=== PATIENT | female | born 1960 | race Caucasian/White ===

== ENCOUNTER → 2022-04-17 | Outpatient (CLI) | payer MEDICARE ==
--- NOTE | 2022-04-17 12:34 | Diagnostic Imaging Report ---
INDICATION: Abnormal CT chest study. The patient reportedly has a mass in the left upper lobe. TECHNIQUE: Serum blood glucose level at the time of injection was 117 mg/dl. The patient was administered 11.8 mCi of F-18 FDG intravenously in the right antecubital location and PET imaging was performed from the top of the skull to the mid thighs. A noncontrast CT was also performed for attenuation correction and anatomic correlation. COMPARISON: No prior imaging is available for comparison. FINDINGS: There is symmetric activity throughout the brain. The soft tissues of the neck are unremarkable. There is a hypermetabolic cavitary mass in the left upper lobe measuring 2.3 cm in size, likely accounting for the CT abnormality. The SUV max is approximately 6.0. No mediastinal or hilar hypermetabolism is seen. No other pulmonary parenchymal areas of hypermetabolism are identified. The abdomen and pelvis demonstrate physiologic activity throughout the GI and tracts. No suspicious areas of hypermetabolism are seen. There is some nonspecific muscular uptake in paraspinous muscles as well as about the left hip. IMPRESSION: Hypermetabolic cavitary left upper lobe lung mass, concerning for lung neoplasm. No other significant abnormality is detected. Dictated by: Dictated on workstation # [id number]
== END ==
LOC: RAD 09:00
PROVIDERS: ATTEND Nurse Practitioner Family
DX: R68.89 Other general symptoms and signs (principal); R93.89 Abnormal findings on diagnostic imaging of other specified body structures; R91.8 Other nonspecific abnormal finding of lung field; F17.200 Nicotine dependence, unspecified, uncomplicated

== ENCOUNTER 2022-04-27 07:35 | Outpatient (CLI) | payer MEDICARE ==
[2022-04-27] VITALS (15 sets, daily range): BP systolic 115–150; BP diastolic 71–95
[~2022-04-27] VITALS: Ht 157.5 cm; Wt 69.0 kg
[2022-04-27 08:15] LABS: HEMATOCRIT 35 % (35-52); MEAN CORPUSCULAR HEMOGLOBIN 20 pg (25-34); MEAN CORPUSCULAR HGB CONC 29 g/dL (32-36); MEAN CORPUSCULAR VOLUME 69 fL (80-99); MEAN PLATELET VOLUME 9.1 fL (9.0-12.2); PLATELET COUNT 480 10^3/uL (130-400); WHITE BLOOD COUNT 8.1 10^3/uL (4.3-11.0)
[2022-04-27 08:34] LABS: PROTHROMBIN TIME PATIENT 13.9 SEC (12.2-14.7)
[2022-04-27] MEDS: NS IV 1000 ML 1,000 ML IV STA (10:07)
[2022-04-27] MEDS: fentaNYL INJ 100 MCG/2 ML AMP IVP ONE (10:11)
[2022-04-27] MEDS: MIDAZOLAM 2 MG/2 ML (VERSED) VIAL IVP ONE (10:11)
[2022-04-27] MEDS: LIDOCAINE 1% INJ 30 ML (XYLOCAINE) VIAL INJ ONE (10:11)
--- NOTE | 2022-04-27 11:37 | Diagnostic Imaging Report ---
INDICATION: Left upper lobe mass. Patient presents for CT-guided biopsy. TECHNIQUE: All CT scans use one or more of the following dose optimizing techniques: automated exposure control, MA and/or KvP adjustment based on patient size and exam type or iterative reconstruction. DETAILS OF THE PROCEDURE: The patient was brought to the CT suite and placed on the table in the supine position. Axial imaging through the chest was performed to evaluate for an appropriate entry site. The procedure was performed utilizing conscious sedation with Radiology nursing and constant patient monitoring. The patient was given a total of 100 mcg of fentanyl intravenously and 2 mg of Versed intravenously. The total procedure time was approximately 22 minutes. The upper left anterior thorax was prepped and draped in the usual sterile fashion. A small amount of 1% lidocaine was utilized for local anesthesia. An 18-gauge coaxial Temno needle was advanced and placed with its tip along the margin of the cavitary lesion in the left upper lobe. Numerous core biopsies were obtained. A BioSentry device was deployed during needle removal. Followup imaging does show some perilesional hemorrhage but no significant pneumothorax. The patient tolerated the procedure well and left the Department in stable condition. IMPRESSION: CT-guided left upper lobe lung mass biopsy utilizing conscious sedation. Pathology results are currently pending. Dictated by: Dictated on workstation # [id number]
[2022-04-27] MEDS ORDERED: GABA-486 PO (11:53)
[2022-04-27] MEDS ORDERED: TRAM100T40 PO (11:53)
[2022-04-27] MEDS ORDERED: POTA10TA PO (11:53)
[2022-04-27] MEDS ORDERED: DICL75TA2 PO (11:53)
[2022-04-27] MEDS ORDERED: PANT40TA52 PO (11:53)
[2022-04-27] MEDS ORDERED: AMIT100T2 PO (11:53)
[2022-04-27] MEDS ORDERED: FURO20TA4 PO (11:53)
[2022-04-27] MEDS ORDERED: ROPI4TAB21 PO (11:53)
[2022-04-27] MEDS ORDERED: ALBU8.5H6 PUFF (11:53)
[2022-04-27] MEDS ORDERED: CYCL10TA25 PO (11:53)
[2022-04-27] MEDS ORDERED: BUPR300T98 PO (11:53)
[2022-04-27] MEDS ORDERED: BUDE10.27 IH (11:53)
[2022-04-27] MEDS ORDERED: INDO20CA4 PO (11:53)
[2022-04-27] MEDS ORDERED: ATOR20TA66 PO (11:53)
[2022-04-27] MEDS ORDERED: ALBU2.5V4 INH (11:53)
--- NOTE | 2022-04-27 12:20 | Pre-Op Note & Conscious Sedat ---
Pre-Operative Progress Note Date of Available H&P: Apr 27, 2022 Date H&P Reviewed: Apr 27, 2022 Time H&P Reviewed: 09:00 Pre-Op Diagnosis: lung mass Conscious Sedation Pre-Proced Time 09:00 ASA Score 2 For ASA 3 and 4: Consider anesthesia and medical clearance. Also, for patients with a history of failed moderate sedation consider anesthesia. Airway Lungs Heart ASA score ASA 1: a normal healthy patient ASA 2: a patient with a mild systemic disease (mid diabetes, controlled hypertension, obesity ASA 3: a patient with a severe systemic disease that limits activity (angina, COPD, prior Myocardial infarction) ASA 4: a patient with an incapacitating disease that is a constant threat to life (CHF, renal failure) ASA 5: a moribund patient not expected to survive 24 hrs. (ruptured aneurysm) ASA 6: a declared brain- patient whose organs are being harvested. For emergent operations, add the letter E after the classification Mallampati Classification Grade 2 Sedation Plan Analgesia, Amnesia, Plan communicated to team members, Discussed options with patient/fam, Discussed risks with patient/fam The patient is an appropriate candidate to undergo the planned procedure, sedation, and anesthesia. The patient immediately re-assessed prior to indication. ANJU ALEGRIA MD Apr 27, 2022 12:20
--- NOTE | 2022-04-27 16:30 | Diagnostic Imaging Report ---
INDICATION: Left lung biopsy. TIME OF EXAM: 12:21 p.m. FINDINGS: Expiratory radiograph of the chest was obtained. The cavitary mass in the left upper lobe is again noted. No pneumothorax is detected, status post left lung biopsy. No effusion is seen. IMPRESSION: No evidence of pneumothorax. Dictated by: Dictated on workstation # [id number]
[2022-04-30] MEDS ORDERED: OXC5T PO (12:34)
== END 2022-04-27 13:45 | disposition home or self-care (01) ==
LOC: SDC 07:35
PROVIDERS: ATTEND Nurse Practitioner Family
DX: R91.8 Other nonspecific abnormal finding of lung field (principal)
CPT/HCPCS: 36415; 71045; 77012; 85027; 85610; 85730; 99156; 99157

== ENCOUNTER 2022-04-28 17:28 | Observation (INO) | payer MEDICARE, MEDICAID ==
[~2022-04-28] VITALS: Ht 158 cm; Wt 73.0 kg
[~2022-04-28 17:28] MED LIST: ALBU2.5V4 INH; ALBU8.5H6 PUFF; AMIT100T2 PO; ATOR20TA66 PO; BUDE10.27 IH; BUPR300T98 PO; CYCL10TA25 PO; DICL75TA2 PO; FURO20TA4 PO; GABA-486 PO; INDO20CA4 PO; PANT40TA52 PO; POTA10TA PO; ROPI4TAB21 PO; TRAM100T40 PO
--- NOTE | 2022-04-28 17:44 | ED Respiratory ---
General Chief Complaint: Respiratory Problems Stated Complaint: L BREAST PAIN - SOA Source: patient Exam Limitations: no limitations History of Present Illness Date Seen by Provider: Apr 28, 2022 Time Seen by Provider: 17:43 Initial Comments To ER by [facility] from home with reports of severe left chest pain worsened by deep breathing. This began this morning and has gotten worse throughout the day. She had an outpatient CT-guided needle biopsy of a left upper lobe lung mass done here yesterday. She provides her own history. Timing/Duration: constant Severity: moderate Prior Episodes/Possible Cause: no prior episodes Associated Symptoms: cough Allergies and Home Medications Allergies Coded Allergies: Penicillins (Verified Allergy, Unknown, 04/27/22) aspirin (Verified Allergy, Unknown, 04/27/22) Patient Home Medication List Home Medication List Reviewed: Yes Albuterol Sulfate (Albuterol Sulfate) 2.5 Mg/3 Ml (0.083 %) Vial.neb, 2.5 MG INH PRN, (Reported) Entered as Reported by: Renetta Reyes on 04/27/22 115 Albuterol Sulfate (Ventolin Hfa) 90 Mcg Hfa.aer.ad, 108 MCG PUFF Q4H PRN for PRN, (Reported) Entered as Reported by: Renetta Reyes on 04/27/22 115 Amitriptyline HCl (Amitriptyline HCl) 100 Mg Tablet, 100 MG PO DAILY, (Reported) Entered as Reported by: Renetta Reyes on 04/27/22 115 Atorvastatin Calcium (Atorvastatin Calcium) 20 Mg Tablet, 20 MG PO DAILY, (Reported) Entered as Reported by: Renetta Reyes on 04/27/22 115 Budesonide/Formoterol Fumarate (Budesonide-Formoterol 80-4.5) 80 Mcg-4.5 Mcg/Actuation Hfa.aer.ad, 10.2 GM IH BID, (Reported) Entered as Reported by: Renetta Reyes on 04/27/22 115 Bupropion HCl (Bupropion Xl) 300 Mg Tab.er.24h, 300 MG PO DAILY, (Reported) Entered as Reported by: Renetta Reyes on 04/27/22 115 Cyclobenzaprine HCl (Cyclobenzaprine HCl) 10 Mg Tablet, 10 MG PO TID PRN for PRN, (Reported) Entered as Reported by: Renetta Reyes on 04/27/22 115 Diclofenac Sodium (Diclofenac Sodium) 75 Mg Tablet.dr, 75 MG PO BID PRN for PRN, (Reported) Entered as Reported by: Renetta Reyes on 04/27/22 115 Furosemide (Furosemide) 20 Mg Tablet, 20 MG PO DAILY, (Reported) Entered as Reported by: Renetta Reyes on 04/27/22 115 Gabapentin (Gabapentin) 100 Mg Capsule, 300 MG PO BID, (Reported) Entered as Reported by: Renetta Reyes on 04/27/22 115 Indomethacin, Submicronized (Indomethacin) 20 Mg Capsule, 20 MG PO TID, (Reported) Entered as Reported by: Renetta Reyes on 04/27/22 115 Pantoprazole Sodium (Pantoprazole Sodium) 40 Mg Tablet.dr, 40 MG PO DAILY, (Reported) Entered as Reported by: Renetta Reyes on 04/27/22 115 Potassium Chloride (K-Tab ER) 10 Meq Tablet.er, 10 MEQ PO DAILY, (Reported) Entered as Reported by: Renetta Reyes on 04/27/22 115 Ropinirole HCl (Ropinirole HCl) 4 Mg Tab.er.24h, 4 MG PO HS, (Reported) Entered as Reported by: Renetta Reyes on 04/27/22 115 Tramadol HCl (Tramadol HCl) 100 Mg Tablet, 100 MG PO BID PRN for PRN, (Reported) Entered as Reported by: Renetta Reyes on 04/27/22 115 Review of Systems Review of Systems Constitutional: see HPI Physical Exam Vital Signs - First Documented Capillary Refill : Height: '" Weight: lbs. oz. kg; BMI Method: General Appearance: WD/WN, no apparent distress, other (Despite receiving 100 mcg of fentanyl in route to the hospital she still is hypoventilating due to pain. Transient oxygen desaturation down to 87%. Heart rate 106. Blood pressure 128/100. ) HEENT: PERRL/EOMI, normal ENT inspection Neck: non-tender, full range of motion Respiratory: no respiratory distress, no accessory muscle use, other (Left lung vickers diminished as compared to the right, crackles left base) Cardiovascular: no murmur, tachycardia Gastrointestinal: normal bowel sounds, non tender, soft Neurologic/Psychiatric: alert, normal mood/affect, oriented x 3 Skin: normal color, warm/dry Progress/Results/Core Measures Suspected Sepsis SIRS Temperature: Pulse: Respiratory Rate: Laboratory Tests 04/28/22 17:36: White Blood Count 12.0H Blood Pressure / Mean: Laboratory Tests 04/28/22 17:36: Creatinine 1.06, INR Comment 1.0, Platelet Count 516H, Total Bilirubin 0.2 Results/Orders Lab Results Laboratory Tests Test 04/28/22 17:36 Range/Units White Blood Count 12.0 H 4.3-11.0 10^3/uL Red Blood Count 4.92 3.80-5.11 10^6/uL Hemoglobin 9.6 L 11.5-16.0 g/dL Hematocrit 35 35-52 % Mean Corpuscular Volume 70 L 80-99 fL Mean Corpuscular Hemoglobin 20 L 25-34 pg Mean Corpuscular Hemoglobin Concent 28 L 32-36 g/dL Red Cell Distribution Width 19.2 H 10.0-14.5 % Platelet Count 516 H 130-400 10^3/uL Mean Platelet Volume 9.7 9.0-12.2 fL Immature Granulocyte % (Auto) 0 % Neutrophils (%) (Auto) 80 H 42-75 % Lymphocytes (%) (Auto) 11 L 12-44 % Monocytes (%) (Auto) 6 0-12 % Eosinophils (%) (Auto) 2 0-10 % Basophils (%) (Auto) 1 0-10 % Neutrophils # (Auto) 9.6 H 1.8-7.8 10^3/uL Lymphocytes # (Auto) 1.3 1.0-4.0 10^3/uL Monocytes # (Auto) 0.7 0.0-1.0 10^3/uL Eosinophils # (Auto) 0.3 0.0-0.3 10^3/uL Basophils # (Auto) 0.1 0.0-0.1 10^3/uL Immature Granulocyte # (Auto) 0.0 0.0-0.1 10^3/uL Prothrombin Time 13.2 12.2-14.7 SEC INR Comment 1.0 0.8-1.4 Sodium Level 137 135-145 MMOL/L Potassium Level 4.2 3.6-5.0 MMOL/L Chloride Level 102 98-107 MMOL/L Carbon Dioxide Level 25 21-32 MMOL/L Anion Gap 10 5-14 MMOL/L Blood Urea Nitrogen 14 7-18 MG/DL Creatinine 1.06 0.60-1.30 MG/DL Estimat Glomerular Filtration Rate 60 BUN/Creatinine Ratio 13 Glucose Level 122 H 70-105 MG/DL Calcium Level 9.1 8.5-10.1 MG/DL Corrected Calcium 9.2 8.5-10.1 MG/DL Total Bilirubin 0.2 0.1-1.0 MG/DL Aspartate Amino Transf (AST/SGOT) 18 5-34 U/L Alanine Aminotransferase (ALT/SGPT) 21 0-55 U/L Alkaline Phosphatase 140 H 40-136 U/L Total Protein 7.3 6.4-8.2 GM/DL Albumin 3.9 3.2-4.5 GM/DL My Orders Orders - MUKUND FRIEND APRN Chest 1 View, Ap/Pa Only (04/28/22 17:41) Cbc With Automated Diff (04/28/22 17:41) Comprehensive Metabolic Panel (04/28/22 17:41) Protime With Inr (04/28/22 17:41) Ed Iv/Invasive Line Start (04/28/22 17:41) Ketorolac Injection (Toradol Injection) (04/28/22 17:45) Hydromorphone Injection (Dilaudid Inject (04/28/22 17:45) Ct Chest Wo (04/28/22 18:01) Ed Admission (Communication) (04/28/22 19:01) Medications Given in ED Current Medications Medications Dose Ordered Sig/Tg Route Start Time Stop Time Status Last Admin Dose Admin Hydromorphone HCl 0.5 mg ONCE ONCE IV 04/28/22 17:45 04/28/22 17:46 DC 04/28/22 17:55 0.5 MG Ketorolac Tromethamine 15 mg ONCE ONCE IVP 04/28/22 17:45 04/28/22 17:46 DC 04/28/22 17:54 15 MG Vital Signs/I&O 04/28/22 04/28/22 17:30 17:30 Temp 36.8 Pulse 107 Resp 8 B/P (MAP) 124/81 (95) Pulse Ox 94 O2 Delivery Nasal Cannula Room Air O2 Flow Rate 2.00 Capillary Refill : Departure Communication (Admissions) 1900-CBC and CMP look okay without evidence of infection. Chest x-ray fails to reveal any pneumothorax however given her severe pain concern for pneumothorax persisted so proceeded with CT scan. This did show a small left-sided pneu mothorax. This is small and not large enough to require chest tube placement. We will apply supplemental oxygen, admit for pain control repeat x-ray in the morning. Spoke with Dr. Ellis, will admit, spoke with Dr. Dorman from surgery and he will consult in the morning. Patient is agreeable with this plan. After our dose of 0.5 mg Dilaudid here with Toradol she feels much better with oxygen saturation of 97%. Heart rate down to 80s, blood pressure stable 123/76. NAME: DEMETRIS [facility] REC#: [id number] PT STATUS: REG ER : 1960 PHYSICIAN: MUKUND FRIEND APRN ADMIT DATE: 04/28/22/ER Signed Date of Exam:04/28/22 CT CHEST WO EXAMINATION: CT chest without contrast. TECHNIQUE: Multiple contiguous axial images were obtained through the chest without the use of intravenous contrast. All CT scans use one or more of the following dose optimizing techniques: automated exposure control, MA and/or KvP adjustment based on patient size and exam type or iterative reconstruction. HISTORY: left chest pain, mass biopsy yesterday COMPARISON: 04/17/2022. FINDINGS: Thyroid: The thyroid is normal. Mediastinum: Heart size is normal without significant pericardial effusion. The aorta is normal in caliber. No suspicious lymphadenopathy. Lungs and airways: There is a small left pneumothorax. There is prominent atelectasis seen within the lingula. Cavitary lesion with surrounding groundglass opacity is seen within the left upper lobe measuring up to 2.0 x 1.5 cm. No significant pleural effusion. The airways are normal. Upper abdomen: The gallbladder is surgically absent. Musculoskeletal: Degenerative changes of the spine without suspicious osseous lesion or compression fracture. IMPRESSION: 1. Small left pneumothorax. 2. Redemonstrated cavitary lesion within the left upper lobe. CRITICAL FINDING. Results communicated to Mukund Friend by Dr. Adiel Aguilar at 06:26 p.m. on 04/28/2022. Dictated by: Dictated on workstation # [id number] Dict: 04/28/221822 Trans: 04/28/22 184 [id number] [id number] Interpreted by: ELVIRA AGUILAR DO Electronically signed by: ELVIRA AGUILAR DO 04/28/22 1843 Impression Primary Impression: Pneumothorax Disposition: ADMITTED INPATIENT Condition: Critical Admissions Decision to Admit Reason: Admit from ER (General) Departure-Patient Inst. Referrals: NO,LOCAL PHYSICIAN (PCP/Family) Primary Care Physician Patient Instructions: Pneumothorax (Collapsed Lung) (DC) MUKUND FRIEND APRN Apr 28, 2022 17:44
[2022-04-28] MEDS ORDERED: HYDROmorphone 2 MG/ML VIAL (DILAUDID) IV ONE (17:45)
[2022-04-28] MEDS ORDERED: KETOROLAC 30 MG/ML VIAL IVP ONE (17:45)
[2022-04-28 17:51] LABS: BASOPHILS # (AUTO) 0.1 10^3/uL (0.0-0.1); BASOPHILS % (AUTO) 1 % (0-10); EOSINOPHILS # (AUTO) 0.3 10^3/uL (0.0-0.3); EOSINOPHILS % (AUTO) 2 % (0-10); HEMATOCRIT 35 % (35-52); HEMOGLOBIN 9.6 g/dL (11.5-16.0); LYMPHOCYTES # (AUTO) 1.3 10^3/uL (1.0-4.0); LYMPHOCYTES % (AUTO) 11 % (12-44); MEAN CORPUSCULAR HEMOGLOBIN 20 pg (25-34); MEAN CORPUSCULAR HGB CONC 28 g/dL (32-36); MEAN CORPUSCULAR VOLUME 70 fL (80-99); MEAN PLATELET VOLUME 9.7 fL (9.0-12.2); MONOCYTES # (AUTO) 0.7 10^3/uL (0.0-1.0); MONOCYTES % (AUTO) 6 % (0-12); NEUTROPHILS # (AUTO) 9.6 10^3/uL (1.8-7.8); NEUTROPHILS % (AUTO) 80 % (42-75); PLATELET COUNT 516 10^3/uL (130-400)
--- NOTE | 2022-04-28 17:52 | Diagnostic Imaging Report ---
EXAMINATION: Chest, one view. HISTORY: Chest pain. COMPARISON: None available. FINDINGS: Heart size and pulmonary vasculature are normal. The lungs are clear without consolidation, pleural effusion, or pneumothorax. Degenerative changes of the thoracic spine. Osseous structures are otherwise intact. IMPRESSION: 1. No acute radiographic abnormality in the chest. Dictated by: Dictated on workstation # [id number]
[2022-04-28 17:59] LABS: PROTHROMBIN TIME PATIENT 13.2 SEC (12.2-14.7)
[2022-04-28 18:00] LABS: ALBUMIN 3.9 GM/DL (3.2-4.5)
[2022-04-28 18:01] LABS: POTASSIUM 4.2 MMOL/L (3.6-5.0)
[2022-04-28 18:02] LABS: CALCIUM 9.1 MG/DL (8.5-10.1)
[2022-04-28 18:03] LABS: TOTAL PROTEIN 7.3 GM/DL (6.4-8.2)
[2022-04-28 18:05] LABS: BILIRUBIN,TOTAL 0.2 MG/DL (0.1-1.0)
[2022-04-28 18:06] LABS: CREATININE SERUM 1.06 MG/DL (0.60-1.30)
--- NOTE | 2022-04-28 18:34 | Diagnostic Imaging Report ---
EXAMINATION: CT chest without contrast. TECHNIQUE: Multiple contiguous axial images were obtained through the chest without the use of intravenous contrast. All CT scans use one or more of the following dose optimizing techniques: automated exposure control, MA and/or KvP adjustment based on patient size and exam type or iterative reconstruction. HISTORY: left chest pain, mass biopsy yesterday COMPARISON: 04/17/2022. FINDINGS: Thyroid: The thyroid is normal. Mediastinum: Heart size is normal without significant pericardial effusion. The aorta is normal in caliber. No suspicious lymphadenopathy. Lungs and airways: There is a small left pneumothorax. There is prominent atelectasis seen within the lingula. Cavitary lesion with surrounding groundglass opacity is seen within the left upper lobe measuring up to 2.0 x 1.5 cm. No significant pleural effusion. The airways are normal. Upper abdomen: The gallbladder is surgically absent. Musculoskeletal: Degenerative changes of the spine without suspicious osseous lesion or compression fracture. IMPRESSION: 1. Small left pneumothorax. 2. Redemonstrated cavitary lesion within the left upper lobe. CRITICAL FINDING. Results communicated to Aj Friend by Dr. Adiel Harris at 06:26 p.m. on 04/28/2022. Dictated by: Dictated on workstation # [id number]
[2022-04-28 19:46] VITALS: BP 119/71
[2022-04-28 20:29] VITALS: BP 124/81
[2022-04-28] MEDS ORDERED: LORazepam 0.5 MG (ATIVAN) TABLET PO PRN (20:30)
[2022-04-28] MEDS ORDERED: CALCIUM CARBONATE 500 MG (TUMS) TAB.CHEW PO PRN (20:30)
[2022-04-28] MEDS ORDERED: diphenhydrAMINE 25 MG TAB (BENADRYL) PO PRN (20:30)
[2022-04-28] MEDS ORDERED: MELATONIN 3 MG TABLET PO PRN (20:30)
[2022-04-28] MEDS ORDERED: LORazepam INJ 2 MG/ML (ATIVAN) VIAL IVP PRN (20:30)
[2022-04-28] MEDS ORDERED: MILK OF MAGNESIA 400 MG/5 ML 30 ML UDC PO PRN (20:30)
[2022-04-28] MEDS ORDERED: ONDANSETRON 4 MG/2 ML (SDV) Z0FRAN IV PRN (20:30)
[2022-04-28] MEDS ORDERED: BISACODYL 10 MG SUPP (DULCOLAX) PR PRN (20:30)
[2022-04-28] MEDS ORDERED: HYDROmorphone 2 MG/ML VIAL (DILAUDID) IV PRN (20:30)
[2022-04-28] MEDS ORDERED: ACETAMINOPHEN 325 MG TABLET PO PRN (20:30)
[2022-04-28] MEDS ORDERED: polyethylene glycoL POWDER 17 GM (MIRALAX) PACK PO PRN (20:30)
[2022-04-28] MEDS ORDERED: ONDANSETRON 4 MG (ZOFRAN) ORAL DISSOLVE TAB PO PRN (20:30)
[2022-04-28] MEDS ORDERED: LACTULOSE SYRUP 10GM/15ML (ENULOSE) 30ML UDC PO PRN (20:30)
[2022-04-28] MEDS ORDERED: diphenhydrAMINE 50 MG/ML INJ (BENADRYL) IVP PRN (20:30)
[2022-04-28] MEDS ORDERED: ANTACID SUSP 30 ML UDC (MYLANTA) PO PRN (20:30)
[2022-04-28] MEDS: SENNOSIDES 8.6 MG (SENOKOT) TAB PO SCH (21:59)
[2022-04-28] MEDS: DOCUSATE SODIUM 100 MG (COLACE) CAP PO SCH (21:59)
[2022-04-28] MEDS: RT-ALBUTEROL SULF 2.5 MG/3 ML PRE-MIX VIAL INH PRN (23:36)
[2022-04-28 23:51] VITALS: BP 130/66
--- NOTE | 2022-04-28 23:54 | Consultation - Surgery ---
History of Present Illness History of Present Illness Patient Consulted On(basilia/time) 04/28/22 23:53 Time Seen by Provider: 23:09 History of Present Illness Surgery asked to consult regarding Pneumothorax. HPI per ED: To ER by [facility] from home with reports of severe left chest pain worsened by deep breathing. This began this morning and has gotten worse throughout the day. She had an outpatient CT-guided needle biopsy of a left upper lobe lung mass done here yesterday. She provides her own history. Timing/Duration: constant Severity: moderate Prior Episodes/Possible Cause: no prior episodes Associated Symptoms: cough When I spoke to the pt tonight she stated her breathing was much better. When I spoke to the ED provider, they relayed pt was tachypnic and hypoxic because of the pain. Pt started this morning and then just continued to get worse. She denied doing anything physical and denied trauma to the left side. States she is much more comfortable tonight compared to earlier; "now I can breathe and pain is maybe 3-4 out of 10, it was 10 out of 10 earlier. And, I have a high pain tolerance". She did not think she had a big cough prior to chest pain either. She stated she couldn't take a big breath or catch her breath because of the pain. Allergies and Home Medications Allergies Coded Allergies: Penicillins (Verified Allergy, Unknown, 04/27/22) aspirin (Verified Allergy, Unknown, 04/27/22) Patient Home Medication List Home Medication List Reviewed: Yes Albuterol Sulfate (Albuterol Sulfate) 2.5 Mg/3 Ml (0.083 %) Vial.neb, 2.5 MG INH PRN, (Reported) Entered as Reported by: Renetta Reyes on 04/27/221152 Last Action: Reviewed Albuterol Sulfate (Ventolin Hfa) 90 Mcg Hfa.aer.ad, 108 MCG PUFF Q4H PRN for PRN, (Reported) Entered as Reported by: Renetta Reyes on 04/27/221152 Last Action: Reviewed Amitriptyline HCl (Amitriptyline HCl) 100 Mg Tablet, 100 MG PO DAILY, (Reported) Entered as Reported by: Renetta Reyes on 04/27/221152 Last Action: Reviewed Atorvastatin Calcium (Atorvastatin Calcium) 20 Mg Tablet, 20 MG PO DAILY, (Reported) Entered as Reported by: Renetta Reyes on 04/27/221152 Last Action: Reviewed Budesonide/Formoterol Fumarate (Budesonide-Formoterol 80-4.5) 80 Mcg-4.5 Mcg/Actuation Hfa.aer.ad, 10.2 GM IH BID, (Reported) Entered as Reported by: Renetta Reyes on 04/27/221152 Last Action: Reviewed Bupropion HCl (Bupropion Xl) 300 Mg Tab.er.24h, 300 MG PO DAILY, (Reported) Entered as Reported by: Renetta Reyes on 04/27/221152 Last Action: Reviewed Cyclobenzaprine HCl (Cyclobenzaprine HCl) 10 Mg Tablet, 10 MG PO TID PRN for PRN, (Reported) Entered as Reported by: Renetta Reyes on 04/27/221152 Last Action: Reviewed Diclofenac Sodium (Diclofenac Sodium) 75 Mg Tablet.dr, 75 MG PO BID PRN for PRN, (Reported) Entered as Reported by: Renetta Reyes on 04/27/221152 Last Action: Reviewed Furosemide (Furosemide) 20 Mg Tablet, 20 MG PO DAILY, (Reported) Entered as Reported by: Renetta Reyes on 04/27/221152 Last Action: Reviewed Gabapentin (Gabapentin) 100 Mg Capsule, 300 MG PO BID, (Reported) Entered as Reported by: Renetta Reyes on 04/27/221152 Last Action: Reviewed Indomethacin, Submicronized (Indomethacin) 20 Mg Capsule, 20 MG PO TID, (Reported) Entered as Reported by: Renetta Reyes on 04/27/221152 Last Action: Reviewed Pantoprazole Sodium (Pantoprazole Sodium) 40 Mg Tablet.dr, 40 MG PO DAILY, (Reported) Entered as Reported by: Renetta Reyes on 04/27/221152 Last Action: Reviewed Potassium Chloride (K-Tab ER) 10 Meq Tablet.er, 10 MEQ PO DAILY, (Reported) Entered as Reported by: Renetta Reyes on 04/27/221152 Last Action: Reviewed Ropinirole HCl (Ropinirole HCl) 4 Mg Tab.er.24h, 4 MG PO HS, (Reported) Entered as Reported by: Renetta Reyes on 04/27/221152 Last Action: Reviewed Tramadol HCl (Tramadol HCl) 100 Mg Tablet, 100 MG PO BID PRN for PRN, (Reported) Entered as Reported by: Renetta Reyes on 04/27/22 1150 Last Action: Reviewed Past Sltkgdj-Mkqgnu-Qipwft Hx Patient Social History Smoking Status: Current Someday Smoker Alcohol Use?: No Have you traveled recently?: No Surgeries History of Surgeries: Yes (Lung bx) Respiratory History of Respiratory Disorde: Yes Respiratory Disorders: COPD Cardiovascular History of Cardiac Disorders: Yes Cardiac Disorders: High Cholesterol, Hypertension Neurological History of Neurological Disord: Yes Neurological Disorders: Headaches /Migraines, Neuropathy Genitourinary History of Genitourinary Disor: No Gastrointestinal History of Gastrointestinal Di: No Musculoskeletal History of Musculoskeletal Dis: Yes Musculoskeletal Disorders: Arthritis Endocrine History of Endocrine Disorders: No HEENT Hearing Impairment: Denies Cancer History of Cancer: No Psychosocial History of Psychiatric Problem: Yes Behavioral Health Disorders: Anxiety, Depression Integumentary History of Skin or Integumenta: No Family Medical History Significant Family History: No Pertinent Family Hx (pt does not remember if family has any medical problems) Review of Systems-General Constitutional: No chills, No fever EENTM: No blurred vision, No mouth pain, No mouth swelling, No epistaxis Respiratory: cough, dyspnea on exertion; No hemoptysis; short of breath Cardiovascular: chest pain; No edema, No palpitations Gastrointestinal: No abdominal pain, No nausea, No vomiting Genitourinary: No dysuria, No frequency, No hematuria Musculoskeletal: No back pain; joint pain, joint swelling, muscle stiffness Skin: No change in color, No change in hair/nails Psychiatric/Neurological: Anxiety, Depressed; Denies Seizure, Denies Tremors Physical Exam-General Problems Physical Exam Vital Signs Vital Signs - First Documented 04/28/22 20:29 FiO2 28 Capillary Refill : General Appearance: mild distress, obese Eyes: Bilateral Eye PERRL, Bilateral Eye EOMI HEENT: pharynx normal; No scleral icterus (R), No scleral icterus (L) Neck: non-tender, supple Respiratory: lungs clear, normal breath sounds, no respiratory distress, no accessory muscle use, other (pt appears to take normal breaths) Cardiovascular: regular rate, rhythm, no murmur Gastrointestinal: non tender, soft, no organomegaly Back: no CVA tenderness, no vertebral tenderness Extremities: no pedal edema, no calf tenderness Neurologic/Psychiatric: alert, normal mood/affect, oriented x 3 Skin: normal color, warm/dry Lymphatic: no adenopathy (neck or groin) Data Review Labs Laboratory Tests 04/28/22 17:36: White Blood Count 12.0H, Red Blood Count 4.92, Hemoglobin 9.6L, Hematocrit 35, Mean Corpuscular Volume 70L, Mean Corpuscular Hemoglobin 20L, Mean Corpuscular Hemoglobin Concent 28L, Red Cell Distribution Width 19.2H, Platelet Count 516H, Mean Platelet Volume 9.7, Immature Granulocyte % (Auto) 0, Neutrophils (%) (Auto) 80H, Lymphocytes (%) (Auto) 11L, Monocytes (%) (Auto) 6, Eosinophils (%) (Auto) 2, Basophils (%) (Auto) 1, Neutrophils # (Auto) 9.6H, Lymphocytes # (Auto) 1.3, Monocytes # (Auto) 0.7, Eosinophils # (Auto) 0.3, Basophils # (Auto) 0.1, Immature Granulocyte # (Auto) 0.0, Prothrombin Time 13.2, INR Comment 1.0, Sodium Level 137, Potassium Level 4.2, Chloride Level 102, Carbon Dioxide Level 25, Anion Gap 10, Blood Urea Nitrogen 14, Creatinine 1.06, Estimat Glomerular Filtration Rate 60, BUN/Creatinine Ratio 13, Glucose Level 122H, Calcium Level 9.1, Corrected Calcium 9.2, Total Bilirubin 0.2, Aspartate Amino Transf (AST/S GOT) 18, Alanine Aminotransferase (ALT/SGPT) 21, Alkaline Phosphatase 140H, Total Protein 7.3, Albumin 3.9 Radiology Date of Exam:04/28/22 CT CHEST WO EXAMINATION: CT chest without contrast. TECHNIQUE: Multiple contiguous axial images were obtained through the chest without the use of intravenous contrast. All CT scans use one or more of the following dose optimizing techniques: automated exposure control, MA and/or KvP adjustment based on patient size and exam type or iterative reconstruction. HISTORY: left chest pain, mass biopsy yesterday COMPARISON: 04/17/2022. FINDINGS: Thyroid: The thyroid is normal. Mediastinum: Heart size is normal without significant pericardial effusion. The aorta is normal in caliber. No suspicious lymphadenopathy. Lungs and airways: There is a small left pneumothorax. There is prominent atelectasis seen within the lingula. Cavitary lesion with surrounding groundglass opacity is seen within the left upper lobe measuring up to 2.0 x 1.5 cm. No significant pleural effusion. The airways are normal. Upper abdomen: The gallbladder is surgically absent. Musculoskeletal: Degenerative changes of the spine without suspicious osseous lesion or compression fracture. IMPRESSION: 1. Small left pneumothorax. 2. Redemonstrated cavitary lesion within the left upper lobe. CRITICAL FINDING. Results communicated to Aj Friend by Dr. Adiel Aguilar at 06:26 p.m. on 04/28/2022. Dictated by: Dictated on workstation # [id number] Dict: 04/28/221822 Trans: 04/28/221842 [id number] Interpreted by: ELVIRA AGUILAR DO Electronically signed by: ELVIRA AGUILAR DO 04/28/221842 Assessment/Plan Assessment/Plan Assessment/Plan Pneumothorax - Iatrogenic Chest pain SOB with hypoxia - on O2 I looked at the CT and CXR myself and spoke with ED provider. The PTX is very hard to see on CXR and I think I only see it because I have seen the CT. Pt's breathing has improved, she is not hypoxic but is on O2 by NC. She does not appear to be in any distress and will check the CXR in the am. The PTX is too small to attempt to remove the air in the pleural cavity; would just monitor breathing and imaging. Pain control as needed. Will have RT see to make sure she won't need O2 at home. MENDOZA GUPTA DO Apr 28, 2022 23:54
[2022-04-29 04:17] VITALS: BP 114/66
[2022-04-29 05:51] LABS: BASOPHILS % (AUTO) 1 % (0-10); EOSINOPHILS # (AUTO) 0.3 10^3/uL (0.0-0.3); EOSINOPHILS % (AUTO) 4 % (0-10); HEMATOCRIT 31 % (35-52); HEMOGLOBIN 8.8 g/dL (11.5-16.0); LYMPHOCYTES # (AUTO) 1.6 10^3/uL (1.0-4.0); LYMPHOCYTES % (AUTO) 22 % (12-44); MEAN CORPUSCULAR HEMOGLOBIN 20 pg (25-34); MEAN CORPUSCULAR HGB CONC 28 g/dL (32-36); MEAN CORPUSCULAR VOLUME 70 fL (80-99); MEAN PLATELET VOLUME 9.3 fL (9.0-12.2); MONOCYTES # (AUTO) 0.6 10^3/uL (0.0-1.0); MONOCYTES % (AUTO) 8 % (0-12); NEUTROPHILS # (AUTO) 4.8 10^3/uL (1.8-7.8); NEUTROPHILS % (AUTO) 66 % (42-75); PLATELET COUNT 428 10^3/uL (130-400); WHITE BLOOD COUNT 7.3 10^3/uL (4.3-11.0)
[2022-04-29 06:15] LABS: ALBUMIN 3.5 GM/DL (3.2-4.5); BILIRUBIN,TOTAL 0.3 MG/DL (0.1-1.0); CALCIUM 8.6 MG/DL (8.5-10.1); CREATININE SERUM 0.83 MG/DL (0.60-1.30); POTASSIUM 3.6 MMOL/L (3.6-5.0); TOTAL PROTEIN 6.5 GM/DL (6.4-8.2)
--- NOTE | 2022-04-29 06:48 | Short Stay Summary-Hospitalist ---
History of Present Illness HPI/Chief Complaint Chief complaint: Pneumothorax with chest pain due to left-sided very small pneumothorax post procedure HPI: This is a 61-year-old female smoker who is status post CT-guided pulmonary nodule biopsy who presented to the ER last night with left-sided chest pain found to have no evidence of any abnormality on chest x-ray but CT scan obtained showing a very small pneumothorax. The pain was so severe she required IV pain medication and general surgery consultation. She reports that she is doing a lot better but still a lot of pain and oxygen supplementation has been maintained and follow-up chest x-ray shows only a trace amount of pneumothorax. Source: patient Exam Limitations: no limitations Date Seen 04/29/22 Time Seen by a Provider: 11:00 Attending Physician [facility] PCP Admitting Physician: Nilda Ellis DO Attending Physician: Nilda Ellis DO Referring Physician Date of Admission Apr 28, 2022 at 19:02 Home Medications & Allergies Home Medications Reviewed patient Home Medication Reconciliation performed by pharmacy medication reconciliations licensed psychiatric technician and/or nursing. Patients Allergies have been reviewed. Allergies Allergies Coded Allergies Penicillins (Verified Allergy, Unknown, 04/27/22) aspirin (Verified Allergy, Unknown, 04/27/22) Past Reuvgpw-Vpvijj-Ysdrxm Hx Patient Social History Marrital Status: single Employed/Student: unemployed Tobacco Use?: Yes Tobacco type used: Cigarettes Smoking Status: Current Everyday Smoker Smokeless Tobacco Frequency: Never a User Use of E-Cig and/or Vaping dev: No Substance use?: No Alcohol Use?: No Pt feels they are or have been: No Immunizations Up To Date First/Initial COVID19 Vaccinat: DENIES Tetanus Booster (TDap): Unknown Current Status status: No status: No Advance Directives: No Communicates: Verbally Primary Language: Telugu Preferred Spoken Language: Telugu Is interpretation needed?: No Past Medical History COPD High Cholesterol, Hypertension Headaches /Migraines, Neuropathy Arthritis Hearing Impairment: Denies Anxiety, Depression Family Medical History No Pertinent Family Hx (pt does not remember if family has any medical problems) Review of Systems Constitutional: see HPI Respiratory: short of breath Cardiovascular: chest pain Physical Exam Physical Exam Vital Signs Vital Signs - First Documented 04/28/22 20:29 FiO2 28 Capillary Refill : Height, Weight, BMI Height: '" Weight: lbs. oz. kg; 29.24 BMI Method: General Appearance: No Apparent Distress, WD/WN, Chronically ill Eyes: Bilateral Eye PERRL, Bilateral Eye EOMI Respiratory: No Accessory Muscle Use, No Respiratory Distress, Decreased Breath Sounds Cardiovascular: Regular Rate, Rhythm Neurologic/Psychiatric: Alert, Oriented x3, No Motor/Sensory Deficits, Normal Mood/Affect Results Results/Procedures Labs Laboratory Tests 04/28/22 17:36 04/29/22 05:45 Patient resulted labs reviewed. Short Stay Diagnosis Discharge Diagnosis-Short Stay Admission Diagnosis Assessment: Left-sided pneumothorax status post CT-guided lung nodule biopsy Hypoxia Chest pain Smoker Hypertension Hyperlipidemia COPD Plan: Pain control Oxygen Dr. Dorman appreciated Final Discharge Diagnosis Assessment: Left-sided pneumothorax status post CT-guided lung nodule biopsy Hypoxia Chest pain Smoker Hypertension Hyperlipidemia COPD Plan: Pain control Oxygen Dr. Dorman appreciated Conclusion Plan Assessment: Left-sided pneumothorax status post CT-guided lung nodule biopsy Hypoxia Chest pain Smoker Hypertension Hyperlipidemia COPD Plan: Pain control Oxygen Dr. Dorman appreciated Diagnosis/Problems Diagnosis/Problems (1) Pneumothorax Status: Acute NILDA ELLIS DO Apr 29, 2022 06:48
[2022-04-29 07:23] VITALS: BP 154/73
[2022-04-29] MEDS: DOCUSATE SODIUM 100 MG (COLACE) CAP PO SCH ×2 (08:00→21:25)
[2022-04-29] MEDS: SENNOSIDES 8.6 MG (SENOKOT) TAB PO SCH ×2 (08:00→21:25)
--- NOTE | 2022-04-29 08:51 | Progress Note - Surgery ---
JOHNIE ZULUAGA 04/29/22 0851: Subjective Date Seen by a Provider: Apr 29, 2022 Time Seen by a Provider: 07:45 Subjective/Events-last exam Ms. Rivera is a 61 year old female being followed for a small pneumothorax s/p CT-guided needle biopsy of a left upper lobe lung mass on MAY 01. Patient rep orts increased pain this morning causing her to only be able to take shallow breaths. The pain is on her left-chest wall and wraps around to her back. The pain is worsened with deep breathing. She has had a continuous cough that is painful. Prior to our encounter her last bit of pain medicine was last night, she received more pain medicine right after our encounter. She rates her pain as a 7/10 this morning but it was a 10/10 at its peak. She is maintained on 2L oxygen via NC. She does not feel short of breath, only has trouble taking deep breaths. Review of Systems General: No Chills, No Fatigue Pulmonary: No Dyspnea; Cough, Pleuritic Chest Pain Cardiovascular: No: Chest Pain, Palpitations Gastrointestinal: No: Nausea, Vomiting, Abdominal Pain Neurological: No: Weakness, Confusion Objective Exam Vital Signs Date Time Temp Pulse Resp B/P (MAP) Pulse Ox O2 Delivery O2 Flow Rate FiO2 04/29/22 07:23 36.4 95 18 154/73 (100) 92 Nasal Cannula 2.00 2.00 04/29/22 07:00 91 04/29/22 04:17 36.3 92 16 114/66 (82) 95 Nasal Cannula 2.00 04/29/22 01:00 90 04/28/22 23:51 36.4 99 16 130/66 (87) 94 Nasal Cannula 2.00 04/28/22 23:36 94 Nasal Cannula 2.00 04/28/22 20:29 36.8 107 94 28 04/28/22 19:46 36.1 100 20 119/71 (87) 97 Nasal Cannula 2.00 04/28/22 19:36 92 12 118/82 95 Nasal Cannula 2.00 04/28/22 19:30 Nasal Cannula 2.00 04/28/22 17:30 Room Air 04/28/22 17:30 36.8 107 8 124/81 (95) 94 Nasal Cannula 2.00 I & O 04/29/22 07:00 Intake Total 872 ml Balance 872 ml Capillary Refill : General Appearance: No Apparent Distress, WD/WN HEENT: PERRL/EOMI; No Scleral Icterus (L), No Scleral Icterus (R) Neck: Normal Inspection, Non Tender Respiratory: Chest Non Tender, No Accessory Muscle Use, No Respiratory Distress (No distress noted, patient was sitting up and leaning forward), Decreased Breath Sounds (Distant lung sounds, patient unable to take deep breaths) Cardiovascular: Regular Rate, Rhythm, No Edema, Normal Peripheral Pulses Peripheral Pulses: 2+ Radial Pulses (R), 2+ Radial Pulses (L) Gastrointestinal: non tender, soft Extremity: Non Tender, No Calf Tenderness Neurologic/Psychiatric: Alert, Oriented x3, No Motor/Sensory Deficits, Normal Mood/Affect Skin: Normal Color, Warm/Dry Results Lab Laboratory Tests 04/28/22 17:36: White Blood Count 12.0H, Red Blood Count 4.92, Hemoglobin 9.6L, Hematocrit 35, Mean Corpuscular Volume 70L, Mean Corpuscular Hemoglobin 20L, Mean Corpuscular Hemoglobin Concent 28L, Red Cell Distribution Width 19.2H, Platelet Count 516H, Mean Platelet Volume 9.7, Immature Granulocyte % (Auto) 0, Neutrophils (%) (Auto) 80H, Lymphocytes (%) (Auto) 11L, Monocytes (%) (Auto) 6, Eosinophils (%) (Auto) 2, Basophils (%) (Auto) 1, Neutrophils # (Auto) 9.6H, Lymphocytes # (Auto) 1.3, Monocytes # (Auto) 0.7, Eosinophils # (Auto) 0.3, Basophils # (Auto) 0.1, Immature Granulocyte # (Auto) 0.0, Prothrombin Time 13.2, INR Comment 1.0, Sodium Level 137, Potassium Level 4.2, Chloride Level 102, Carbon Dioxide Level 25, Anion Gap 10, Blood Urea Nitrogen 14, Creatinine 1.06, Estimat Glomerular Filtration Rate 60, BUN/Creatinine Ratio 13, Glucose Level 122H, Calcium Level 9.1, Corrected Calcium 9.2, Total Bilirubin 0.2, Aspartate Amino Transf (AST/SGOT) 18, Alanine Aminotransferase (ALT/SGPT) 21, Alkaline Phosphatase 140H , Total Protein 7.3, Albumin 3.9 04/29/22 05:45: White Blood Count 7.3, Red Blood Count 4.42, Hemoglobin 8.8L, Hematocrit 31L, Mean Corpuscular Volume 70L, Mean Corpuscular Hemoglobin 20L, Mean Corpuscular Hemoglobin Concent 28L, Red Cell Distribution Width 18.6H, Platelet Count 428H, Mean Platelet Volume 9.3, Immature Granulocyte % (Auto) 0, Neutrophils (%) (Auto) 66, Lymphocytes (%) (Auto) 22, Monocytes (%) (Auto) 8, Eosinophils (%) (Auto) 4, Basophils (%) (Auto) 1, Neutrophils # (Auto) 4.8, Lymphocytes # (Auto) 1.6, Monocytes # (Auto) 0.6, Eosinophils # (Auto) 0.3, Basophils # (Auto) 0.0, Immature Granulocyte # (Auto) 0.0, Sodium Level 136, Potassium Level 3.6, Chloride Level 103, Carbon Dioxide Level 26, Anion Gap 7, Blood Urea Nitrogen 13, Creatinine 0.83, Estimat Glomerular Filtration Rate 80, BUN/Creatinine Ratio 16, Glucose Level 91, Calcium Level 8.6, Corrected Calcium 9.0, Total Bilirubin 0.3, Aspartate Amino Transf (AST/SGOT) 17, Alanine Aminotransferase (ALT/SGPT) 21, Alkaline Phosphatase 123, Total Protein 6.5, Albumin 3.5 Assessment/Plan Assessment/Plan Assessment/Plan Pneumothorax - Iatrogenic Chest pain SOB with hypoxia - on O2 Leukocytosis Trending down to 7.3 this morning CXR repeated this AM, no report yet as of this note Symptomatic management at this time, no indication for chest tube Pain control as needed Supplemental oxygen via NC as needed JULIAN DORMAN DO 04/29/22 1203: Subjective Time Seen by a Provider: 09:28 Subjective/Events-last exam Pt seen and examined, states it still hurts to take deep breaths and she it still on O2 by NC. Pain meds help with pain and coughing makes it worse. Review of Systems General: No Chills, No Fatigue Pulmonary: No Dyspnea; Cough, Pleuritic Chest Pain Cardiovascular: No: Chest Pain, Palpitations Gastrointestinal: No: Nausea, Vomiting, Abdominal Pain Objective Exam General Appearance: No Apparent Distress, WD/WN HEENT: PERRL/EOMI; No Scleral Icterus (L), No Scleral Icterus (R) Respiratory: No Accessory Muscle Use, No Respiratory Distress (No distress noted, patient was sitting up and leaning forward), Decreased Breath Sounds (Distant lung sounds, patient unable to take deep breaths), Other (Left side of chest is tender) Cardiovascular: Regular Rate, Rhythm, No Murmur Gastrointestinal: non tender, soft Extremity: Non Tender, No Calf Tenderness Neurologic/Psychiatric: Alert, Oriented x3 Assessment/Plan Assessment/Plan Assessment/Plan Pneumothorax - Iatrogenic Chest pain SOB with hypoxia - on O2 Leukocytosis Trending down to 7.3 this morning CXR repeated this AM, I reviewed myself and then followed up looking at Radiology report; now can see small PTX in costophrenic angle (it might have been there yesterday). PTX not big enough for chest tube. RT for MAT protocol, breathing treatments and to assess O2 needs (to try and get her off NC so she can go home). Pain control as needed. Supplemental oxygen via NC as needed Supervisory-Addendum Brief Verification & Attestation Participated in pt care: history, MDM, physical Personally performed: exam, history, MDM, supervision of care Care discussed with: Medical Student Procedures: n/a Verification and Attestation of Medical Student E/M Service A medical student performed and documented this service. I then reviewed and verified all information documented by the medical student and made modifications to such information, when appropriate. I personally performed a physical exam, medical decision making and then discussed any differences between the notes and made revisions as necessary to create one note. Julian Dorman , 04/29/22 , 12:03 JHONIE ZULUAGA Apr 29, 2022 08:51 JULIAN DORMAN DO Apr 29, 2022 12:03
--- NOTE | 2022-04-29 09:10 | Diagnostic Imaging Report ---
CHEST 1 VIEW, AP/PA ONLY Indication: Pneumothorax Comparison: 04/28/2022 Findings: Left upper lobe cavitary nodule is stable. Trace left basilar pneumothorax. No mediastinal shift. No pleural effusion. Normal heart size. Impression: 1. The trace left-sided pneumothorax is barely appreciable by radiography. 2. Stable cavitary nodule in the left upper lobe. Dictated by: Dictated on workstation # [id number]
[2022-04-29 11:02] VITALS: BP 147/66
[2022-04-29 16:15] VITALS: BP 148/97
[2022-04-29 19:25] VITALS: BP 166/102
[2022-04-29] MEDS ORDERED: ENOXAPARIN 40 MG/0.4 ML (LOVENOX) SYR SC SCH (21:00)
[2022-04-29] MEDS: RT-ALBUTEROL SULF 2.5 MG/3 ML PRE-MIX VIAL INH PRN (21:35)
[2022-04-29 23:25] VITALS: BP 151/90
[2022-04-30 03:33] VITALS: BP 159/80
[2022-04-30 07:19] VITALS: BP 148/84
[2022-04-30 07:23] LABS: BASOPHILS # (AUTO) 0.1 10^3/uL (0.0-0.1); BASOPHILS % (AUTO) 1 % (0-10); EOSINOPHILS # (AUTO) 0.3 10^3/uL (0.0-0.3); EOSINOPHILS % (AUTO) 4 % (0-10); HEMATOCRIT 36 % (35-52); HEMOGLOBIN 10.2 g/dL (11.5-16.0); LYMPHOCYTES # (AUTO) 1.4 10^3/uL (1.0-4.0); LYMPHOCYTES % (AUTO) 15 % (12-44); MEAN CORPUSCULAR HEMOGLOBIN 20 pg (25-34); MEAN CORPUSCULAR HGB CONC 28 g/dL (32-36); MEAN CORPUSCULAR VOLUME 70 fL (80-99); MEAN PLATELET VOLUME 9.5 fL (9.0-12.2); MONOCYTES # (AUTO) 0.5 10^3/uL (0.0-1.0); MONOCYTES % (AUTO) 6 % (0-12); NEUTROPHILS # (AUTO) 6.8 10^3/uL (1.8-7.8); NEUTROPHILS % (AUTO) 74 % (42-75); PLATELET COUNT 505 10^3/uL (130-400); WHITE BLOOD COUNT 9.2 10^3/uL (4.3-11.0)
[2022-04-30 07:36] LABS: ALBUMIN 4.1 GM/DL (3.2-4.5)
[2022-04-30 07:37] LABS: CALCIUM 9.6 MG/DL (8.5-10.1)
[2022-04-30 07:39] LABS: TOTAL PROTEIN 7.6 GM/DL (6.4-8.2)
[2022-04-30 07:40] LABS: BILIRUBIN,TOTAL 0.3 MG/DL (0.1-1.0)
[2022-04-30 07:42] LABS: CREATININE SERUM 0.8 MG/DL (0.60-1.30)
--- NOTE | 2022-04-30 07:55 | Progress Note - Hospitalist ---
Subjective HPI/CC On Admission Date Seen by Provider: Apr 30, 2022 Time Seen by Provider: 11:00 Chief complaint: Pneumothorax with chest pain due to left-sided very small pneumothorax post procedure HPI: This is a 61-year-old female smoker who is status post CT-guided pulmonary nodule biopsy who presented to the ER last night with left-sided chest pain found to have no evidence of any abnormality on chest x-ray but CT scan obtained showing a very small pneumothorax. The pain was so severe she required IV pain medication and general surgery consultation. She reports that she is doing a lot better but still a lot of pain and oxygen supplementation has been maintained and follow-up chest x-ray shows only a trace amount of pneumothorax. Subjective/Events-last exam Patient doing much better Wants to go home Home O2 evaluation will be completed Weaning off oxygen Reviewed chest x-ray Review of Systems General: Fatigue, Malaise Pulmonary: Dyspnea Objective Exam Vital Signs Vital Signs Date Time Temp Pulse Resp B/P (MAP) Pulse Ox O2 Delivery O2 Flow Rate FiO2 04/30/22 11:03 36.5 105 20 154/92 (112) 95 Nasal Cannula 1.00 1.00 04/28/22 20:29 28 Capillary Refill : General Appearance: No Apparent Distress, WD/WN, Chronically ill Respiratory: Lungs Clear, Normal Breath Sounds Cardiovascular: Regular Rate, Rhythm Neurologic/Psychiatric: Alert, Oriented x3, No Motor/Sensory Deficits, Normal Mood/Affect Results/Procedures Lab Laboratory Tests 04/30/22 07:07 Patient resulted labs reviewed. Assessment/Plan Assessment and Plan Assess & Plan/Chief Complaint Assessment: Left-sided pneumothorax status post CT-guided lung nodule biopsy Hypoxia Chest pain Smoker Hypertension Hyperlipidemia COPD Plan: Pain control Oxygen Dr. Dorman appreciated Diagnosis/Problems Diagnosis/Problems (1) Pneumothorax Status: Acute JEREMYABIOLA CROSS Apr 30, 2022 07:55
[2022-04-30] MEDS ORDERED: RT-ALBUTEROL SULF 2.5 MG/3 ML PRE-MIX VIAL INH SCH (08:00)
[2022-04-30] MEDS: SENNOSIDES 8.6 MG (SENOKOT) TAB PO SCH ×2 (08:43→08:46)
[2022-04-30] MEDS: DOCUSATE SODIUM 100 MG (COLACE) CAP PO SCH ×2 (08:43→08:45)
--- NOTE | 2022-04-30 09:00 | Diagnostic Imaging Report ---
EXAMINATION: Chest 2 view HISTORY: Pneumothorax COMPARISON: 04/29/2022 FINDINGS: Heart size and pulmonary vasculature are normal. There continues to be a small left pleural effusion with a trace amount of air seen along the superior margin. There are mild interstitial opacities within the left lung base which are unchanged. Degenerative changes of the thoracic spine. Osseous structures are otherwise intact. IMPRESSION: 1. Stable appearing left hydropneumothorax compared to 04/29/2022. Dictated by: Dictated on workstation # [id number]
[2022-04-30 11:03] VITALS: BP 154/92
--- NOTE | 2022-04-30 12:03 | Progress Note - Surgery ---
JOHNIE ZULUAGA 04/30/22 1203: Subjective Date Seen by a Provider: Apr 30, 2022 Time Seen by a Provider: 10:55 Subjective/Events-last exam Ms. Rivera is a 61 year old female being followed for a small pneumothorax s/p CT-guided needle biopsy of a left upper lobe lung mass on MAY 01. Patient rep orts she is feeling much better today with no pain with breathing. She is not having trouble breathing or shortness of breath. Her oxygen has been decreased from 2L NC to 1L NC and she said she can feel okay without it as well. She has been getting breathing treatments which help, she uses these at home. She is not on oxygen at home. She is able to take much deeper breaths today but still can't take a full deep breath. Still has tenderness to palpation on left chest wall. Patient feels she would like to go home. Review of Systems General: No Chills, No Fatigue Pulmonary: No Dyspnea; Cough, Pleuritic Chest Pain Cardiovascular: No: Chest Pain, Palpitations Gastrointestinal: No: Nausea, Vomiting Neurological: No: Weakness, Confusion Objective Exam Vital Signs Date Time Temp Pulse Resp B/P (MAP) Pulse Ox O2 Delivery O2 Flow Rate FiO2 04/30/22 11:03 36.5 105 20 154/92 (112) 95 Nasal Cannula 1.00 1.00 04/30/22 09:00 93 Nasal Cannula 1.00 04/30/22 07:36 93 Nasal Cannula 1.00 04/30/22 07:19 36.8 96 18 148/84 (105) 92 Nasal Cannula 2.00 2.00 04/30/22 03:33 36.4 91 16 159/80 (106) 95 Nasal Cannula 2.00 04/29/22 23:25 35.9 103 16 151/90 (110) 95 Nasal Cannula 2.00 04/29/22 21:36 93 Room Air 0.00 04/29/22 20:00 Room Air 04/29/22 19:25 36.2 98 18 166/102 (123) 2.00 04/29/22 16:15 36.8 98 20 148/97 (114) 96 Nasal Cannula 2.00 04/29/22 15:46 Nasal Cannula 2.00 04/29/22 12:25 92 Nasal Cannula 2.00 I & O 04/30/22 07:00 Intake Total 2480 ml Balance 2480 ml Capillary Refill : General Appearance: No Apparent Distress, WD/WN, Chronically ill HEENT: PERRL/EOMI; No Scleral Icterus (L), No Scleral Icterus (R) Neck: Non Tender; No Lymphadenopathy (L), No Lymphadenopathy (R) Respiratory: No Accessory Muscle Use, No Respiratory Distress, Decreased Breath Sounds (Distant), Other (Left chest wall tender to palpation in axillary line) Cardiovascular: Regular Rate, Rhythm, No Edema, No Murmur, Normal Peripheral Pulses Peripheral Pulses: 2+ Radial Pulses (R), 2+ Radial Pulses (L) Gastrointestinal: non tender, soft Extremity: Non Tender, No Calf Tenderness, No Pedal Edema Neurologic/Psychiatric: Alert, Oriented x3, No Motor/Sensory Deficits, Normal Mood/Affect Skin: Normal Color, Warm/Dry Results Lab Laboratory Tests 04/30/22 07:07: White Blood Count 9.2, Red Blood Count 5.14H, Hemoglobin 10.2L, Hematocrit 36, Mean Corpuscular Volume 70L, Mean Corpuscular Hemoglobin 20L, Mean Corpuscular Hemoglobin Concent 28L, Red Cell Distribution Width 18.7H, Platelet Count 505H, Mean Platelet Volume 9.5, Immature Granulocyte % (Auto) 0, Neutrophils (%) (Auto) 74, Lymphocytes (%) (Auto) 15, Monocytes (%) (Auto) 6, Eosinophils (%) (Auto) 4, Basophils (%) (Auto) 1, Neutrophils # (Auto) 6.8, Lymphocytes # (Auto) 1.4, Monocytes # (Auto) 0.5, Eosinophils # (Auto) 0.3, Basophils # (Auto) 0.1, Immature Granulocyte # (Auto) 0.0, Sodium Level 140, Potassium Level 4.0, Chloride Level 102, Carbon Dioxide Level 26, Anion Gap 12, Blood Urea Nitrogen 8, Creatinine 0.80, Estimat Glomerular Filtration Rate 84, BUN/Creatinine Ratio 10, Glucose Level 104, Calcium Level 9.6, Corrected Calcium 9.5, Total Bilirubin 0.3, Aspartate Amino Transf (AST/SGOT) 20, Alanine Aminotransferase (ALT/SGPT) 24, Alkaline Phosphatase 152H, Total Protein 7.6, Albumin 4.1 Assessment/Plan Assessment/Plan Assessment/Plan Pneumothorax - Iatrogenic Chest pain SOB with hypoxia - on O2 Leukocytosis Resolved CXR this morning shows small left hydropneumothorax. PTX not big enough for chest tube. RT for MAT protocol, breathing treatments and to assess O2 needs (to try and get her off NC so she can go home). Pain control as needed. Supplemental oxygen via NC as needed Discharge once supplemental oxygen is no longer required. JULIAN DORMAN DO 04/30/22 1437: Subjective Time Seen by a Provider: 13:30 Subjective/Events-last exam Pt seen and examined, states her breathing is ok and pain with breathing is not as bad. She would like to go home. She is still on O2. Review of Systems General: No Chills Pulmonary: No Dyspnea; Cough, Pleuritic Chest Pain Cardiovascular: No: Chest Pain, Palpitations Gastrointestinal: No: Nausea, Vomiting Objective Exam General Appearance: No Apparent Distress, WD/WN HEENT: PERRL/EOMI Respiratory: No Accessory Muscle Use, No Respiratory Distress, Decreased Breath Sounds (Distant), Other (Left chest wall tender to palpation in axillary line) Cardiovascular: Regular Rate, Rhythm, No Murmur Gastrointestinal: non tender, soft Extremity: Non Tender, No Calf Tenderness, No Pedal Edema Neurologic/Psychiatric: Alert, Oriented x3, Normal Mood/Affect Assessment/Plan Assessment/Plan Assessment/Plan Pneumothorax - Iatrogenic Chest pain SOB with hypoxia - on O2 Leukocytosis Resolved CXR this morning shows small left hydropneumothorax. PTX not big enough for chest tube. RT for MAT protocol, breathing treatments and to assess O2 needs (to try and get her off NC so she can go home). Pain control as needed. Supplemental oxygen via NC as needed. Would send home with IS. Discharge once supplemental oxygen is no longer required. Supervisory-Addendum Brief Verification & Attestation Participated in pt care: history, MDM, physical Personally performed: exam, history, MDM, supervision of care Care discussed with: Medical Student Procedures: n/a Verification and Attestation of Medical Student E/M Service A medical student performed and documented this service. I then reviewed and verified all information documented by the medical student and made modifications to such information, when appropriate. I personally performed a physical exam, medical decision making and then discussed any differences between the notes and made revisions as necessary to create one note. Julian Dorman , 04/30/22 , 14:37 JOHNIE ZULUAGA Apr 30, 2022 12:03 JULIAN DORMAN DO Apr 30, 2022 14:37
[2022-04-30] MEDS ORDERED: OXC5T PO (12:34)
--- NOTE | 2022-04-30 12:36 | Discharge Summary ---
Discharge Summary Hospital Course Was the Problem List Reviewed?: Yes Problems/Dx: (1) Pneumothorax Status: Acute Qualifiers: Qualified Codes: J95.811 - Postprocedural pneumothorax Hospital Course Date of Admission: Apr 28, 2022 at 19:02 Admission Diagnosis : Family Physician/Provider: Catherine Carter Aprn Date of Discharge: 04/30/22 Discharge Diagnosis: Postprocedural pneumothorax Hospital Course: Brief hospital course after she was admitted for pneumothorax following CT- guided biopsy. She required oxygen supplementation to try to expand the lung. Serial chest x-rays obtained showing residual small pneumothorax but no chest tube required. Patient was deemed stable for discharge. Labs and Pending Lab Test: Laboratory Tests 04/30/22 07:07: White Blood Count 9.2, Red Blood Count 5.14H, Hemoglobin 10.2L, Hematocrit 36, Mean Corpuscular Volume 70L, Mean Corpuscular Hemoglobin 20L, Mean Corpuscular Hemoglobin Concent 28L, Red Cell Distribution Width 18.7H, Platelet Count 505H, Mean Platelet Volume 9.5, Immature Granulocyte % (Auto) 0, Neutrophils (%) (Auto) 74, Lymphocytes (%) (Auto) 15, Monocytes (%) (Auto) 6, Eosinophils (%) (Auto) 4, Basophils (%) (Auto) 1, Neutrophils # (Auto) 6.8, Lymphocytes # (Auto) 1.4, Monocytes # (Auto) 0.5, Eosinophils # (Auto) 0.3, Basophils # (Auto) 0.1, Immature Granulocyte # (Auto) 0.0, Sodium Level 140, Potassium Level 4.0, Chloride Level 102, Carbon Dioxide Level 26, Anion Gap 12, Blood Urea Nitrogen 8, Creatinine 0.80, Estimat Glomerular Filtration Rate 84, BUN/Creatinine Ratio 10, Glucose Level 104, Calcium Level 9.6, Corrected Calcium 9.5, Total Bilirubin 0.3, Aspartate Amino Transf (AST/SGOT) 20, Alanine Aminotransferase (ALT/SGPT) 24, Alkaline Phosphatase 152H, Total Protein 7.6, Albumin 4.1 Home Meds Active Oxyir Tablet (Oxycodone HCl) 5 Mg Tab 5 Mg PO BID PRN Reported Tramadol HCl 100 Mg Tablet 100 Mg PO BID PRN Ropinirole HCl 4 Mg Tab.er.24h 4 Mg PO HS Ventolin Hfa (Albuterol Sulfate) 90 Mcg Hfa.aer.ad 108 Mcg PUFF Q4H PRN 1 PUFF = 90 MCG Pantoprazole Sodium 40 Mg Tablet.dr 40 Mg PO DAILY K-Tab ER (Potassium Chloride) 10 Meq Tablet.er 10 Meq PO DAILY Indomethacin (Indomethacin, Submicronized) 20 Mg Capsule 20 Mg PO TID Gabapentin 100 Mg Capsule 300 Mg PO BID Furosemide 20 Mg Tablet 20 Mg PO DAILY Diclofenac Sodium 75 Mg Tablet.dr 75 Mg PO BID PRN Cyclobenzaprine HCl 10 Mg Tablet 10 Mg PO TID PRN Bupropion Xl (Bupropion HCl) 300 Mg Tab.er.24h 300 Mg PO DAILY Budesonide-Formoterol 80-4.5 (Budesonide/Formoterol Fumarate) 80 Mcg-4.5 Mcg/Actuation Hfa.aer.ad 10.2 Gm IH BID Atorvastatin Calcium 20 Mg Tablet 20 Mg PO DAILY Amitriptyline HCl 100 Mg Tablet 100 Mg PO DAILY Albuterol Sulfate 2.5 Mg/3 Ml (0.083 %) Vial.neb 2.5 Mg INH PRN Assessment/Pt Instructions PCP in 2 days Discharge Planning: <30 minutes discharge planning Discharge Physical Examination Vital Signs Vital Signs Date Time Temp Pulse Resp B/P (MAP) Pulse Ox O2 Delivery O2 Flow Rate FiO2 04/30/22 11:03 36.5 105 20 154/92 (112) 95 Nasal Cannula 1.00 1.00 04/28/22 20:29 28 General Appearance: No Apparent Distress, WD/WN, Chronically ill Respiratory: Chest Non Tender, Lungs Clear, Normal Breath Sounds, No Accessory Muscle Use, No Respiratory Distress Allergies: Coded Allergies: Penicillins (Verified Allergy, Unknown, 04/27/22) aspirin (Verified Allergy, Unknown, 04/27/22) Discharge Summary Date of Admission Apr 28, 2022 at 19:02 Date of Discharge Discharge Date: Apr 30, 2022 Admission Diagnosis Assessment: Left-sided pneumothorax status post CT-guided lung nodule biopsy Hypoxia Chest pain Smoker Hypertension Hyperlipidemia COPD Plan: Pain control Oxygen Dr. Dorman appreciated Discharge Diagnosis Assessment: Left-sided pneumothorax status post CT-guided lung nodule biopsy Hypoxia Chest pain Smoker Hypertension Hyperlipidemia COPD Plan: Pain control Oxygen Dr. Dorman appreciated (1) Pneumothorax Status: Acute Qualifiers: Qualified Codes: J95.811 - Postprocedural pneumothorax ABIOLA LUNA DO Apr 30, 2022 12:36
[2022-04-30 15:55] VITALS: BP 154/92
== END 2022-04-30 15:55 | disposition home or self-care (01) ==
LOC: EDUNIT# 17:28 → ER 17:29 → UNDOADMOB 19:02 → 4TH 19:02 → UNDODISOB 04-30 15:26
PROVIDERS: ADMIT Internal Medicine; ATTEND Internal Medicine
DX: J93.83 Other pneumothorax (principal); R09.02 Hypoxemia; J44.9 Chronic obstructive pulmonary disease, unspecified; I10 Essential (primary) hypertension; E78.5 Hyperlipidemia, unspecified; D72.829 Elevated white blood cell count, unspecified; F17.210 Nicotine dependence, cigarettes, uncomplicated; Z28.310 Unvaccinated for COVID-19
CPT/HCPCS: 36415; 71045; 71046; 71250; 80053; 85025; 85610; 94640; 94760; 94761; 96372; G0378